=== PATIENT | male | born 1955 | race Caucasian/White ===

== ENCOUNTER → 2016-12-24 | Outpatient (CLI) | payer MEDICARE ==
[~2016-12-24] MED LIST: EFAV1TAB PO; LEVO25TA4 PO; OXYC1TAB9 PO; PYRI250T7 PO; ZOLP10TA5 PO
[2016-12-24 10:41] LABS: HEMOGLOBIN 15.6 g/dL (13.7-18.0)
[2016-12-24 10:55] LABS: PATH.CAST-FLAG NOT PRESENT; SPERM-FLAG NOT PRESENT; SRC-FLAG NOT PRESENT; XTAL-FLAG NOT PRESENT; YLC-FLAG NOT PRESENT
[2016-12-24 11:16] LABS: BLOOD UREA NITROGEN 11 mg/dL (7-18)
[2016-12-24 11:19] LABS: ASPARTATE AMINO TRANSFERASE 19 U/L (15-37)
[2016-12-25 08:51] LABS: HEP B SURF. AB < 3.1 mIU/mL (0.0-10.0)
[2016-12-25 22:06] LABS: ABSOLUTE CD 4 HELPER 293 /uL (359-1519); HEMOGLOBIN 15.7 g/dL (12.6-17.7); IMMATURE GRANULOCYTES 0 % (.); MCH 33.4 pg (26.6-33.0); MCHC 34.9 g/dL (31.5-35.7); MCV 96 fL (79-97); MONOCYTES 8 % (.); NEUTROPHILS 54 % (.); PLATELETS 179 x10E3/uL (150-379); RDW 13.8 % (12.3-15.4); WBC 5.1 x10E3/uL (3.4-10.8)
== END | disposition home or self-care (01) ==
LOC: LAB 10:18
PROVIDERS: ATTEND Internal Medicine Infectious Disease
DX: E03.9 Hypothyroidism, unspecified (principal); E78.5 Hyperlipidemia, unspecified; N40.1 Benign prostatic hyperplasia with lower urinary tract symptoms
CPT/HCPCS: 36415; 80053; 80061; 81001; 84153; 84439; 84443; 85025; 86361; 86706; 87340; 87536; G0103

== ENCOUNTER → 2017-01-28 | Outpatient (CLI) | payer MEDICARE | END | disposition home or self-care (01) | LOC: LAB 10:51 | PROVIDERS: ATTEND Internal Medicine Infectious Disease | DX: B20 Human immunodeficiency virus [HIV] disease (principal); C46.0 Kaposi's sarcoma of skin; B19.10 Unspecified viral hepatitis B without hepatic coma | CPT/HCPCS: 36415; 87536 ==

== ENCOUNTER → 2018-02-24 | Outpatient (CLI) | payer MEDICARE | END | disposition home or self-care (01) | LOC: LAB 10:34 | PROVIDERS: ATTEND Internal Medicine Infectious Disease | DX: C46.1 Kaposi's sarcoma of soft tissue (principal); B19.10 Unspecified viral hepatitis B without hepatic coma; B20 Human immunodeficiency virus [HIV] disease; Z79.899 Other long term (current) drug therapy | CPT/HCPCS: 36415; 86361; 87536 ==

== ENCOUNTER → 2019-02-10 | Outpatient (CLI) | payer MEDICARE ==
[~2019-02-10] MED LIST changes: +OXYC-432 PO; -OXYC1TAB9 PO
[2019-02-10 11:10] LABS: BASOPHILS # (AUTO) 0.03 x10^3/uL (0-0.1); BASOPHILS % (AUTO) 1 % (0-1); EOSINOPHILS # (AUTO) 0.14 x10^3/uL (0-0.4); EOSINOPHILS % (AUTO) 2 % (1-7); LYMPHOCYTES # (AUTO) 1.75 x10^3/uL (1-3.4); LYMPHOCYTES % (AUTO) 29 % (22-44); MD NO; MEAN CORPUSCULAR HEMOGLOBIN 33.4 pg (27.5-34.5); MEAN CORPUSCULAR HGB CONC 34.1 g/dL (33.2-36.2); MEAN CORPUSCULAR VOLUME 97.8 fL (81-97); MEAN PLATELET VOLUME 7.3 fL (7.4-10.4); MONOCYTES # (AUTO) 0.53 x10^3/uL (0.2-0.8); MONOCYTES % (AUTO) 9 % (2-9); NEUTROPHILS # (AUTO) 3.63 x10^3/uL (1.8-6.8); NEUTROPHILS % (AUTO) 60 % (42-75); PLATELET COUNT 209 x10^3/uL (130-400); RED CELL DISTRIBUTION WIDTH 13.6 % (9.4-14.8)
[2019-02-10 11:16] LABS: ALANINE AMINOTRANSFERASE 18 U/L (12-78); ALBUMIN 3.4 g/dL (3.4-5.0); ANION GAP 6 mmol/L (5-15); CALCIUM 8.6 mg/dL (8.5-10.1); CHLORIDE 107 mmol/L (98-107); CREATININE 1.07 mg/dL (0.7-1.3)
[2019-02-10 11:19] LABS: ALKALINE PHOSPHATASE 104 U/L (45-117); BILIRUBIN,TOTAL 0.7 mg/dL (0.2-1.0); TOTAL PROTEIN 7.9 g/dL (6.4-8.2)
== END | disposition home or self-care (01) ==
LOC: LAB 10:44
PROVIDERS: ATTEND Internal Medicine Infectious Disease
DX: C46.1 Kaposi's sarcoma of soft tissue (principal); B20 Human immunodeficiency virus [HIV] disease
CPT/HCPCS: 36415; 80053; 85025; 86361; 87536